=== PATIENT | male | born 1955 | race Caucasian/White ===

== ENCOUNTER 2022-02-24 15:13 | Emergency (ER) | payer SELFPAY ==
[2022-02-24 15:16] VITALS: BP 161/102; PULSE 84; RESP 13; TEMP 36.1; O2SAT 97; BMI 26.2
--- NOTE | 2022-02-24 15:20 | RAD_ITS ---
STUDY: X-RAY CHEST REASON FOR EXAM: Male, 66 years old. overdose, apnea, chest compressions TECHNIQUE: 1 view COMPARISON: None. FINDINGS: Cardiomediastinal silhouette is unremarkable. Costophrenic angles are sharp. Lungs are clear. The trachea is midline. There is no pneumothorax. Multilevel thoracic spondylosis is seen. RAD/Chest 1 View (Portable) IMPRESSION: No acute cardiopulmonary process. . Electronically Signed: Israel Byrnes MD at 16:21 EDT ,
--- NOTE | 2022-02-24 15:21 | EKG12_ITS ---
Test Reason : UNRESPONSIVE Blood Pressure : / mmHG Vent. Rate : 079 BPM Atrial Rate : 079 BPM P-R Int : 190 ms QRS Dur : 108 ms QT Int : 432 ms P-R-T Axes : 054 -05 018 degrees QTc Int : 495 ms Normal sinus rhythm Nonspecific ST abnormality Prolonged QT Abnormal ECG Confirmed by OSMAR ALFARO, ARVIN ([id number]), communications editor BETH MYERS ([id number]) on 02/27/2022 1:14:52 PM Referred By: FOREIGN Confirmed By:ARVIN PRASAD MD
--- NOTE | 2022-02-24 15:24 | EX.ED.DYSGE1 ---
HPI History of Present Illness Chief Complaint: Unresponsive Informant: patient and EMS Narrative Narrative: Patient is a 66-year-old male denies any past medical history presenting presenting after unresponsive/apneic episode. Patient was last seen at his house about 2 hours prior to arrival where he was normal. Neighbor who works for a local EMS checked on him and states that he was unresponsive, not breathing and he could not feel pulse. Chest compressions were started after 1 minute patient had reported ROSC. Patient continued to be in respiratory arrest and EMS arrived. And I gel was placed and patient initially had end-tidal CO2 in the 50s. Patient was given 2 mg intranasal Narcan and then 2 mg of IV Narcan. Fingerstick glucose was normal. En route patient suddenly had return of spontaneous respirations and was awake and alert. Igel was removed. Patient currently denies any complaints. He states he does not remember what happened. He does admit to both ingesting and snorting Percocet earlier today. He states he took it because he just was not feeling well. Denies any chest pain or difficulty breathing. Denies any other complaints at this time. PFSH PFSH Home Medications hydrocodone-acetaminophen 1 - 2 tab PO Q4H PRN PRN #12 tablet 09/25/15 [Rx Last Taken Unknown] amlodipine 5 mg PO DAILY 02/24/22 [History Last Taken Unknown] diphenhydramine HCl 25 mg PO DAILY 02/24/22 [History Last Taken Unknown] hydrochlorothiazide 25 mg PO DAILY 02/24/22 [History Last Taken Unknown] Allergy/AdvReac Type Severity Reaction Status Date / Time Penicillins AdvReac Other Verified 09/25/15 10:32 Social History Smoking Status: Unknown if ever smoked ROS [facility] ED Constitutional Constitutional ED: Reports other Details: Generalized malaise ; Denies chills or fever(s) ENT ENT ED: Denies rhinorrhea or sore throat Cardiovascular Cardiovascular: Denies chest pain Respiratory/Chest Respiratory/Chest: Denies cough or dyspnea Gastrointestinal Gastrointestinal: Denies abdominal pain, diarrhea or vomiting Musculoskeletal Musculoskeletal: Denies arthralgias or myalgias Integumentary Denies rash Neurologic Neurologic: Denies headache(s) or weakness Psychiatric Psychiatric: Denies anxiety, depression or suicidal thoughts EXAM Physical Exam Const Vital Signs: 02/24/22 15:16 02/24/22 16:29 02/24/22 17:00 Temperature 97.0 F L Temperature Source Oral Pulse Rate 84 73 61 Respiratory Rate 13 12 12 Blood Pressure 161/102 H 136/107 H 134/91 H Blood Pressure Mean 121 116 105 Pulse Ox 97 94 97 Oxygen Delivery Method Room Air Nasal Cannula Nasal Cannula Oxygen Flow Rate (L/min) 2 2 02/24/22 18:31 02/24/22 19:00 Temperature 97 F L Temperature Source Temporal Pulse Rate 62 70 Respiratory Rate 12 11 L Blood Pressure 135/97 H 133/98 H Blood Pressure Mean 109 109 Pulse Ox 94 92 Oxygen Delivery Method Room Air Room Air Oxygen Flow Rate (L/min) Positive well nourished and well developed General Appearance ED: well developed and NAD HEENT Reports moist mucous membranes Negative for trauma Eyes PERRL and EOMs intact bilaterally Neck supple and no JVD Chest Wall inspection of chest normal and palpation of chest normal Chest Narrative: No chest wall crepitus appreciated. Resp normal respiratory effort and clear to auscultation bilaterally Cardio regular rate, regular rhythm and no murmurs Rate: other Other Details: 2+ radial pulses bilaterally GI normal to inspection, nondistended, normoactive bowel sounds and non-tender Palpation: soft Back/Spine no CVA tenderness Extremity normal to inspection General Extremety ED: Negative for edema or tenderness General Extremity: Negative for edema Neuro oriented x3, CN's II-XII intact bilaterally and no sensory deficits noted Sensorium / Orientation: alert Motor Exam: strength 5/5 throughout; Negative for general weakness Psych mental status grossly normal Skin no rashes or lesions noted and no wounds MDM MDM MDM Narrative Medical decision making narrative: Patient evaluated after an episode of unresponsiveness, apnea and questionable loss of pulses. This occurred after he ingested half of a 7.5 Percocet and then snorted the other half. Patient received Narcan in route and then had return of spontaneous respirations and mentation. Patient currently has no complaints. Given the report of loss of pulses and chest compressions I did perform a cardiac work-up. His high since he troponin was 4 and then 9. EKG did not show any acute ischemic changes. I do not think this was an ACS event. CBC is normal as well as CMP except for mild hyperglycemia with a glucose of 157. His potassium is 2.9 however his magnesium is normal. Patient is given oral and IV potassium replacement. He is monitored in the ER for 3 hours and has no further apnea however he does have some transient hypoxia that he does seem to recover from. No signs of aspiration or pulmonary edema on physical exam or x-ray. Patient will be discharged home with instructions to follow-up with his primary care doctor. He is counseled to not abuse opioid medications especially snorting them. He is given return precautions. He verbalizes agreement understand this plan. He will have a feeling of her stay with him tonight. Lab Data Attestation: I reviewed the patient's lab results. Labs: Laboratory Results - last 24 hr 02/24/22 02/24/22 02/24/22 15:25 15:25 16:00 WBC 8.3 RBC 5.46 Hgb 16.3 Hct 50.8 MCV 93.0 MCH 29.9 MCHC 32.1 RDW Std Deviation 45.0 H RDW Coeff of Leo 13.2 Plt Count 306 MPV 8.1 Immature Gran % (Auto) 0.500 Neut % (Auto) 66.6 Lymph % (Auto) 20.7 Yates % (Auto) 6.4 Eos % (Auto) 5.0 Baso % (Auto) 0.8 Absolute Neuts (auto) 5.5 Absolute Lymphs (auto) 1.71 Nucleated RBC % 0 Sodium Cancelled 138 Potassium Cancelled 2.9 L Chloride Cancelled 105 Carbon Dioxide Cancelled 25.0 Anion Gap Cancelled 8 BUN Cancelled 9 Creatinine Cancelled 0.94 Estim Creat Clear Calc Cancelled 75.80 Est GFR (MDRD) Af Amer Cancelled 104 Est GFR (MDRD) Non-Af Cancelled 86 BUN/Creatinine Ratio Cancelled 9.6 L Glucose Cancelled 157 H Calcium Cancelled 8.6 Magnesium Total Bilirubin Cancelled 0.50 AST Cancelled 35 ALT Cancelled 41 Alkaline Phosphatase Cancelled 89 Troponin I High Sens Cancelled 4 Total Protein Cancelled 7.7 Albumin Cancelled 3.3 Globulin Cancelled 4.4 H Albumin/Globulin Ratio Cancelled 0.8 L 02/24/22 02/24/22 16:00 18:20 WBC RBC Hgb Hct MCV MCH MCHC RDW Std Deviation RDW Coeff of Leo Plt Count MPV Immature Gran % (Auto) Neut % (Auto) Lymph % (Auto) Yates % (Auto) Eos % (Auto) Baso % (Auto) Absolute Neuts (auto) Absolute Lymphs (auto) Nucleated RBC % Sodium Potassium Chloride Carbon Dioxide Anion Gap BUN Creatinine Estim Creat Clear Calc Est GFR (MDRD) Af Amer Est GFR (MDRD) Non-Af BUN/Creatinine Ratio Glucose Calcium Magnesium 2.1 Total Bilirubin AST ALT Alkaline Phosphatase Troponin I High Sens 9 Total Protein Albumin Globulin Albumin/Globulin Ratio Radiography Chest X-Ray - ED: 1 View, Read by ED Physician, Read by Radiologist and No Acute Disease Diagnostic Testing: Clinical Impression(s) from Imaging Studies Chest X-Ray 02/24/22 15:20 IMPRESSION: No acute cardiopulmonary process. . Electronically Signed: Israel Byrnes MD at 16:21 EDT , Rhythm Strip Rhythm Strip: Sinus Rhythm Rate: 79 Ectopy: None EKG Initial EKG: Attestation: I personally reviewed and interpreted this EKG as follows: Interpretation: Sinus Rhythm Comments: Normal sinus rhythm at a rate of 79 Normal axis Normal KS and QRS Prolonged QTC of [address] segments with T wave inversion in 3 and aVR which may be normal variant Discharge Plan Triage Chief Complaint: Unresponsive ED Provider: Alicia Ortiz Dx/Rx/DC Orders Clinical Impression: Opioid overdose, Hypokalemia Instructions: ED Opiate Abuse, ED Hypokalemia Prescriptions: No Action hydrocodone-acetaminophen 1 TABLET tablet 1 - 2 tab PO Q4H PRN PRN (Reason: Pain) Qty: 12 RF: 0 amlodipine 5 mg tablet 5 mg PO DAILY RF: 0 diphenhydramine HCl 25 mg Tablet 25 mg PO DAILY RF: 0 hydrochlorothiazide 25 mg tablet 25 mg PO DAILY RF: 0 Primary Care Provider: Brandin Woodward Referrals: Brandin Woodward MD [Primary Care Provider] - Disposition Disposition: Home, Self Care
--- NOTE | 2022-02-24 15:27 | NURSING ---
NO OLD EKGS
[2022-02-24 15:32] LABS: Absolute Lymphocyte Count 1.71 X10^3/uL (0.83-4.51); Absolute Neutrophil Count 5.5 X10^3/uL (2.0-7.7); Basophil# 0.07 X10^3/uL; Basophil% 0.8 % (0-1); Eosinophil# 0.41 X10^3/uL; Hematocrit 50.8 % (40-54); Hemoglobin 16.3 g/dL (13.0-16.5); Lymphocyte # 1.71 X10^3/ul (0.83-4.51); Lymphocyte % 20.7 % (19-41); Mean Corp Hgb Conc 32.1 g/dL (32-36); Mean Corpuscular Hgb 29.9 pg (27.0-32.0); Mean Platelet Vol. 8.1 fl (6.2-12.0); Monocyte# 0.53 X10^3/uL; Monocyte% 6.4 % (0-10); NRBC Flagged by Analyzer 0 % (0-5); Neutrophil # 5.49 X10^3/uL (2.7-7.7); Neutrophil % 66.6 % (47-70); Platelet Count 306 K/mm3 (150-450); RBC Distribution Width CV 13.2 % (11.6-14.6); Red Blood Count 5.46 M/mm3 (4.6-6.2); White Blood Count 8.3 K/mm3 (4.4-11.0)
--- NOTE | 2022-02-24 15:34 | ED.RN ---
PT ADMITS TO SNORTING PERCOCET. STATES NOT THE FIRST TIME. PT GIVES STAFF PERMISSION TO TALK WITH FAMILY REGARDING WHAT BROUGHT PT IN.
--- NOTE | 2022-02-24 15:55 | NURSING ---
CMP AND TROP HEMOLIZED, PER LAB
[2022-02-24 16:29] VITALS: BP 136/107; PULSE 73; RESP 12; O2SAT 94
[2022-02-24 16:35] LABS: ALB/GLOB Ratio 0.8 RATIO (0.9-2.4); AST(SGOT) 35 U/L (15-37); Alanine Aminotransfer ALT/SGPT 41 U/L (16-61); Albumin, Serum 3.3 g/dL (3.2-5.0); Alkaline Phosphatase 89 U/L (45-117); Anion Gap 8 (5-15); BUN 9 mg/dL (7-18); BUN/Creat Ratio 9.6 RATIO (10-20); Calcium,Total 8.6 mg/dL (8.5-10.1); Chloride 105 mmol/L (98-107); Creatinine, Serum 0.94 mg/dL (0.70-1.30); EST Glomerular Filtration Rate 86 mL/min (>60); Est Glom Filt Rate - Afr Amer 104 mL/min (>60); Globulin 4.4 g/dL (2.2-4.2); Glucose 157 mg/dL (74-106); Potassium 2.9 mmol/L (3.5-5.1); Protein, Total 7.7 g/dL (6.4-8.2); Sodium Level 138 mmol/L (136-145); Troponin-I HS (w/2H Reflex) 4 pg/mL (3.0-78.0)
--- NOTE | 2022-02-24 16:39 | CM.ED ---
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 Present in the room was patient's son, Charles. Patient stated he was in pain as I had overdone it and decided to take the Percocet. Patient denied any intent to harm himself or others. Patient stated I decided to tell the truth about the percocet use. Patient was asked about information on detox and/or AOD services or counseling and patient declined. SW offered information on financial programs including medicaid and PCP. Patient said I go to my doctor one time a year and declined the medicaid application as it will cause brain stress. SW again offered detox information and patient declined. SW spoke to patient's son and asked if he had any concern and patient's son said that he was gonna talk to dad about this later. Patient denied that he had overdosed. MP updated MD. SW remains available if needs arise. Plan: Resources offered but declined. Emelia GARCIA
[2022-02-24] MEDS: Potassium Chloride Oral Tablet 20 MEQ 40 MEQ PO (16:54)
[2022-02-24] MEDS: Potassium Chloride 10mEq/100mL 10 MEQ/100 ML IV.SOLN. 100 MEQ IV BOLUS (16:54)
[2022-02-24 17:00] VITALS: BP 134/91; PULSE 61; RESP 12; O2SAT 97
[2022-02-24 17:19] LABS: Magnesium 2.1 mg/dL (1.6-2.6)
[2022-02-24 18:06] LABS: Reflex Troponin-HS? (from REC) Y
[2022-02-24 18:31] VITALS: BP 135/97; PULSE 62; RESP 12; TEMP 36.1; O2SAT 94
[2022-02-24 18:51] LABS: Troponin-I HS 9 pg/mL (3.0-78.0)
[2022-02-24 19:00] VITALS: BP 133/98; PULSE 70; RESP 11; O2SAT 92
[2022-02-24 20:30] VITALS: BP 132/78; PULSE 78; RESP 16; O2SAT 95
== END 2022-02-24 20:32 | disposition home or self-care (01) ==
PROVIDERS: Emergency Provider Emergency Medicine; PCP Family Medicine; Visit Provider Emergency Medicine
DX: T40.2X1A Poisoning by other opioids, accidental (unintentional), initial encounter (principal); R09.02 Hypoxemia; E87.6 Hypokalemia
CPT/HCPCS: 71045; 80053; 83735; 84484; 85025; 93005; 96365; 96366; 99285; A4216

== ENCOUNTER 2023-02-05 16:47 | Emergency (ER) | payer SELFPAY ==
[2023-02-05] VITALS (18 sets, daily range): BP systolic 68–136; BP diastolic 55–119; PULSE 82–132; RESP 16–30; TEMP 35.4; O2SAT 88–98; BMI 26.8
--- NOTE | 2023-02-05 18:19 | CT_ITS ---
INDICATION: dissection study EXAMINATION: CTA CHEST, ABDOMEN AND PELVIS WITH CONTRAST - TECHNIQUE: A CTA of the chest, abdomen, and pelvis is obtained with sagittal and coronal reconstructed MIP views. Three-dimensional surface rendered sequence of the thoracic and abdominal aorta was obtained. A radiation dose optimization technique was used for this scan. mL of Isovue-370. Oral contrast: None. RADIATION DOSAGE (If Supplied By Facility): CTDIvol = ( 13.84 ) mGy, DLP = ( 1007.23 ) mGycm COMPARISON: FINDINGS: CTA CHEST: THORACIC AORTA: Borderline ascending aorta measuring 4.1 cm in diameter. LUNGS: The lungs are well-expanded without acute or chronic changes. No effusions or pneumothorax. MEDIASTINUM: The thyroid gland is normal. Mild mediastinal adenopathy. HEART: Heart is normal size. No pericardial effusion. CT ABDOMEN AND PELVIS: LIVER: The liver enhances homogeneously. No masses identified. GALLBLADDER: The CBD is normal. Normal gallbladder. SPLEEN: Normal. PANCREAS: Limited visualization due to large retroperitoneal hematoma. ADRENAL GLANDS: Normal. KIDNEYS AND URETERS: The kidneys both enhance appropriately. There are normal size and shape. No hydronephrosis or nephrolithiasis. No renal masses or cysts. STOMACH: Normal. SMALL BOWEL: No abnormal distention of the small bowel. ABDOMINAL AORTA: There is a large abdominal aortic aneurysm beginning at the level of the renal arteries extending to the aortic bifurcation maximum diameter is approximately 8.5 cm with intraluminal thrombus. Active bleeding is not appreciated at the time of imaging. 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 Calcified iliac arteries bilaterally. COLON: No significant diverticulosis, masses or inflammation. The colon otherwise is normal. There is a large fatty ileocecal valve. APPENDIX: The appendix is visualized and normal. IVC: Normal. RETROPERITONEUM: There is a large left perinephric and retroperitoneal hematoma encasing the left kidney. PELVIC STRUCTURES: Normal bladder. BONES: No fractures or significant degenerative disease. CT/CTA Chst, Abd, Pel W and/or WO IMPRESSION: Borderline ascending aorta. Large infrarenal abdominal aortic aneurysm with large retroperitoneal and left perinephric hematoma. . 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 N.B. : The above Results were Read Back by Darwin Donnelly DO to Chris Garner MD, and understanding confirmed on 02/05/2023 19:07:33 (ET). Electronically Signed: Darwin Donnelly DO at 19:10 EDT ,
--- NOTE | 2023-02-05 18:20 | EKG12_ITS ---
Test Reason : BACK Blood Pressure : / mmHG Vent. Rate : 097 BPM Atrial Rate : 097 BPM P-R Int : 158 ms QRS Dur : 082 ms QT Int : 374 ms P-R-T Axes : 073 037 060 degrees QTc Int : 474 ms Normal sinus rhythm Normal ECG Confirmed by JOHNATHAN ALFARO, JAYDA ([id number]), research editor GEETHA DENISE ([id number]) on 02/06/2023 12:57:33 P M Referred By: MARK Confirmed By:IRWIN MANN MD
--- NOTE | 2023-02-05 18:20 | ED.VIS.BACK ---
HPI History of Present Illness Chief Complaint: Back Narrative Narrative: 67-year-old male presenting for some lower abdominal and right flank pain. He states this started abruptly while he was working today. He appears to be in a lot of pain and is unable to answer a lot of questions. He cannot describe exactly what the pain feels like. He states that it is 10 of 10. He is holding his abdomen. He denies urinary complaints, constipation, diarrhea. No history of kidney stones. PFSH PFSH Medical History no medical history Home Medications hydrocodone-acetaminophen 5-325mg 5mg-325mg 1 - 2 tab PO Q4H PRN PRN Pain ##12 09/25/15 [Rx Last Taken Unknown] amlodipine 5 mg tablet 5 mg PO DAILY 02/24/22 [History Last Taken Unknown] diphenhydramine HCl 25 mg tablet 25 mg PO DAILY 02/24/22 [History Last Taken Unknown] hydrochlorothiazide 25 mg tablet 25 mg PO DAILY bp 02/24/22 [History Last Taken Unknown] Allergy/AdvReac Type Severity Reaction Status Date / Time Penicillins AdvReac Other Verified 02/05/23 18:25 Surgical History no surgical history Social History Smoking Status: Unknown if ever smoked ROS ROS ED Constitutional Constitutional ED: Denies chills or fever(s) Eyes Eyes: Denies change in vision or diplopia ENT ENT ED: Denies rhinorrhea or sore throat Cardiovascular Cardiovascular: Denies chest pain or palpitations Respiratory/Chest Respiratory/Chest: Denies dyspnea or dyspnea on exertion Gastrointestinal Gastrointestinal: Reports abdominal pain; Denies constipation or diarrhea Genitourinary Genitourinary ED: Denies dysuria or hematuria Musculoskeletal Musculoskeletal: Reports back pain Integumentary Denies abscess or Abrasions Neurologic Neurologic: Reports headache(s) Psychiatric Psychiatric: Reports anxiety and depression EXAM Physical Exam Const Vital Signs: 02/05/23 16:49 02/05/23 18:14 02/05/23 17:30 Temperature 95.7 F L Temperature Source Temporal Pulse Rate 103 H 89 82 Respiratory Rate 24 H 22 H 16 Blood Pressure 123/92 H 93/76 97/64 Blood Pressure Mean 102 81 75 Blood Pressure Source Monitor Blood Pressure Position Semi-Fowlers Blood Pressure Location Left Arm Pulse Ox 98 95 96 Oxygen Delivery Method Room Air Nasal Cannula Room Air Oxygen Flow Rate (L/min) 4 02/05/23 18:52 02/05/23 19:01 02/05/23 19:04 Temperature 95.8 F L Temperature Source Temporal Pulse Rate 96 97 97 Respiratory Rate 30 H 22 H 20 H Blood Pressure 109/74 68/55 L Blood Pressure Mean 85 59 Blood Pressure Source Blood Pressure Position Blood Pressure Location Pulse Ox 95 98 97 Oxygen Delivery Method Nasal Cannula Nasal Cannula Nasal Cannula Oxygen Flow Rate (L/min) 4 4 4 02/05/23 17:00 02/05/23 18:10 02/05/23 18:57 Temperature Temperature Source Pulse Rate 91 96 97 Respiratory Rate 20 H 28 H 21 H Blood Pressure 136/106 H 79/63 L 71/60 L Blood Pressure Mean 116 68 63 Blood Pressure Source Blood Pressure Position Blood Pressure Location Pulse Ox 96 88 98 Oxygen Delivery Method Room Air Room Air Nasal Cannula Oxygen Flow Rate (L/min) 4 02/05/23 19:13 02/05/23 16:49 02/05/23 17:16 Temperature Temperature Source Pulse Rate 101 H 101 H 98 Respiratory Rate 22 H 20 H 20 H Blood Pressure 112/94 H 123/92 H 125/101 H Blood Pressure Mean 100 102 109 Blood Pressure Source Blood Pressure Position Blood Pressure Location Pulse Ox 98 96 97 Oxygen Delivery Method Nasal Cannula Room Air Room Air Oxygen Flow Rate (L/min) 4 02/05/23 17:45 02/05/23 18:03 02/05/23 18:04 Temperature Temperature Source Pulse Rate 95 82 88 Respiratory Rate 24 H 22 H 26 H Blood Pressure 135/119 H 82/69 L 78/60 L Blood Pressure Mean 124 73 66 Blood Pressure Source Blood Pressure Position Blood Pressure Location Pulse Ox 97 92 94 Oxygen Delivery Method Room Air Room Air Room Air Oxygen Flow Rate (L/min) 02/05/23 18:08 02/05/23 18:31 02/05/23 18:42 Temperature Temperature Source Pulse Rate 91 132 H 99 Respiratory Rate 25 H 28 H 24 H Blood Pressure 76/56 L 98/84 H 73/55 L Blood Pressure Mean 62 88 61 Blood Pressure Source Blood Pressure Position Blood Pressure Location Pulse Ox 96 94 95 Oxygen Delivery Method Room Air Nasal Cannula Nasal Cannula Oxygen Flow Rate (L/min) 4 4 02/05/23 18:45 Temperature Temperature Source Pulse Rate 98 Respiratory Rate 24 H Blood Pressure 73/57 L Blood Pressure Mean 62 Blood Pressure Source Blood Pressure Position Blood Pressure Location Pulse Ox 95 Oxygen Delivery Method Nasal Cannula Oxygen Flow Rate (L/min) 4 Positive well nourished Constitutional Narrative: Holding his abdomen appears. Eyes PERRL and EOMs intact bilaterally Resp normal respiratory effort and clear to auscultation bilaterally Auscultation: Negative for rales, rhonchi or wheezes Cardio regular rhythm Rate: tachycardic GI GI Narrative: Diffuse tenderness to palpation. There is right lower quadrant pain which is most pronounced. He is also had CVA tenderness on the right. Palpation: tender; Negative for pulsatile mass Back/Spine normal to inspection General Back: CVA tenderness right Extremity normal to inspection Neuro oriented x3 Sensorium / Orientation: alert and confused Psych Attitude: agitated Skin no rashes or lesions noted and no wounds MDM MDM MDM Narrative Medical decision making narrative: Patient presenting with vague lower abdominal pain and flank pain. Initially had stable vital signs. I was called to the room as the patient had dropped his blood pressure to 95/64. Initially normotensive. Patient is having difficulty give me a history at this point and is having abdominal pain which he cannot describe. He seems to be in severe pain. His abdomen is diffusely tender. He also has CVA tenderness. Given his hypotension I had concern for aortic aneurysm versus dissection. Although kidney stone would be in the differential or acute appendicitis I did believe the presentation was most consistent with a dissection or aortic aneurysm. Patient taken immediately to CTA of the chest abdomen pelvis where it was noted that he had a large aortic aneurysm with a retroperitoneal hematoma on my interpretation. I immediately called [facility] and discussed the case with the transfer line. They did state that they did not have any ICU beds but they did have vascular surgery and would get them on the line. This took about 10 minutes. I spoke with Dr. Randy Broderick and went over the CT read. She specifically asked me if I thought it involve the SMA and I told her I did not think so but the CTA had been interpreted yet. It looks like it starts at the level of the renal arteries down to the iliacs. There is definitely blood outside the aorta. I expressed to her that he is now hypotensive and I had ordered 4 units of trauma blood and has been given 2 L of fluids. [facility] has already been called and is on standby waiting for an accepting physician. In the interim while waiting for Dr. Foley to call back I did call [facility] to see if they would have an accepting physician given that the [facility] transfer line stated that there was no ICU beds. They declined the transfer because they had somebody on the table in the OR and currently. I spoke with a Dr. Jin at [facility] from the ED and discussed with him at length the patient that Dr. Padilla had accepted and the state of his health with a hypotensive and the abdominal aortic aneurysm and rupture. He excepted the patient in transfer. [facility] is now here and they were informed of all findings. He is given an additional 2 units of trauma blood to keep his pressure up. He is leaving with a blood pressure of 112/94. He is tachycardic at 101 and his respiratory rate 22. Discussed at length with his family what was happening and the urgency of surgery and a vascular surgeon. All consents were signed. Reevaluation in the patient's abdomen is becoming more firm and distended. Patient is transferred to [facility] in guarded condition via [facility]. Patient's blood work is really unremarkable. His CBC shows a white blood cell count 8.8, hemoglobin 14.7, platelets 8 orally. Renal function and electrolytes unremarkable. LFTs are unremarkable. Lipase is normal. High-sensitivity troponin is 7. EKG was sinus rhythm with a ventricular 97 bpm without sign of ischemic change or ectopy. Impression: 1. Ruptured abdominal aortic aneurysm 2. Acute blood loss anemia 3. Hypotension Lab Data Labs: Laboratory Results - last 24 hr 02/05/23 02/05/23 02/05/23 18:15 18:15 18:55 WBC 8.8 RBC 5.03 Hgb 14.7 Hct 44.9 MCV 89.3 MCH 29.2 MCHC 32.7 RDW Std Deviation 42.5 RDW Coeff of Leo 13.1 Plt Count 408 MPV 8.8 Immature Gran % (Auto) 0.300 Neut % (Auto) 73.9 H Lymph % (Auto) 17.1 L [place] % (Auto) 5.7 Eos % (Auto) 2.1 Baso % (Auto) 0.9 Absolute Neuts (auto) 6.5 Absolute Lymphs (auto) 1.51 Nucleated RBC % 0 Sodium 140 Potassium 3.2 L Chloride 105 Carbon Dioxide 25.0 Anion Gap 10 BUN 13 Creatinine 1.11 Estim Creat Clear Calc 63.33 Est GFR (MDRD) Af Amer 85 Est GFR (MDRD) Non-Af 70 BUN/Creatinine Ratio 11.7 Glucose 123 H Calcium 10.0 Total Bilirubin 0.30 AST 24 ALT 28 Alkaline Phosphatase 89 Troponin I High Sens 7 Total Protein 7.7 Albumin 3.5 Globulin 4.2 Albumin/Globulin Ratio 0.8 L Lipase 26 Blood Type O POSITIVE Antibody Screen NEGATIVE Crossmatch See Detail Radiography Diagnostic Testing: Clinical Impression(s) from Imaging Studies Chest/Abdomen/Pelvis CTA 02/05/23 18:19 IMPRESSION: Borderline ascending aorta. Large infrarenal abdominal aortic aneurysm with large retroperitoneal and left perinephric hematoma. . 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 N.B. : The above Results were Read Back by Darwin Donnelly DO to Chris Garner MD, and understanding confirmed on 02/05/2023 19:07:33 (ET). Electronically Signed: Darwin Donnelly DO at 19:10 EDT Reading Location ID and State: [facility] / [place] Tel [phone], Service support , ADDENDUM: 02/05/23 191 IMPRESSION: Borderline ascending aorta. Large infrarenal abdominal aortic aneurysm with large retroperitoneal and left perinephric hematoma. . 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 N.B. : The above Results were Read Back by Darwin Donnelly DO to Chris Garner MD, and understanding confirmed on 02/05/2023 19:07:33 (ET). Electronically Signed: Darwin Donnelly DO at 19:10 EDT , Critical Care Time Critical Care Time: Yes Critical care time (excluding procedures): 30-74 minutes (45), Discussing w/Patient &/or Family/Fly Setter, Discussing w/Consultants, Arranging Admission or Transfer and Performing Direct Patient Care at Bedside Discharge Plan Triage Chief Complaint: Back Other Complaint: Abd Pain ETOH Intox ED Provider: Chris Garner Dx/Rx/DC Orders Prescriptions: No Action hydrocodone-acetaminophen 1 TABLET tablet 1 - 2 tab PO Q4H PRN PRN (Reason: Pain) Qty: 12 0RF amlodipine 5 mg tablet 5 mg PO DAILY Label Comments: Take 1 tablet by mouth once daily. diphenhydramine HCl 25 mg Tablet 25 mg PO DAILY hydrochlorothiazide 25 mg tablet 25 mg PO DAILY Label Comments: Take 1 tablet by mouth once daily. Primary Care Provider: Brandin Woodward Referrals: Brandin Woodward MD [Primary Care Provider] - Disposition Disposition: Acute Care Hospital Discharge Location: [facility] Discharge Date/Time: 02/05/23 19:25
[2023-02-05 18:34] LABS: Absolute Lymphocyte Count 1.51 X10^3/uL (0.83-4.51); Absolute Neutrophil Count 6.5 X10^3/uL (2.0-7.7); Basophil# 0.08 X10^3/uL; Basophil% 0.9 % (0-1); Eosinophil# 0.19 X10^3/uL; Eosinophils% 2.1 % (0-5); Hematocrit 44.9 % (40-54); Hemoglobin 14.7 g/dL (13.0-16.5); Lymphocyte # 1.51 X10^3/ul (0.83-4.51); Lymphocyte % 17.1 % (19-41); Mean Corp Hgb Conc 32.7 g/dL (32-36); Mean Corpuscular Hgb 29.2 pg (27.0-32.0); Mean Corpuscular Volume 89.3 fL (80-94); Mean Platelet Vol. 8.8 fl (6.2-12.0); Monocyte% 5.7 % (0-10); NRBC Flagged by Analyzer 0 % (0-5); Neutrophil # 6.53 X10^3/uL (2.7-7.7); Neutrophil % 73.9 % (47-70); Platelet Count 408 K/mm3 (150-450); RBC Distribution Width CV 13.1 % (11.6-14.6); RBC Distribution Width SD 42.5 fl (35.1-43.9); Red Blood Count 5.03 M/mm3 (4.6-6.2); White Blood Count 8.8 K/mm3 (4.4-11.0)
[2023-02-05] MEDS: fentaNYL 100 MCG/2 ML Ampul 50 MCG IV (18:36)
[2023-02-05] MEDS: Ondansetron 4 MG/2 ML Vial IV ×2 (18:37→19:11)
[2023-02-05] MEDS: 0.9% Normal Saline 1,000 ML 1000 ML IV (18:39)
[2023-02-05] MEDS: fentaNYL 100 MCG/2 ML Ampul IV ×2 (18:50→19:13)
[2023-02-05 18:57] LABS: ALB/GLOB Ratio 0.8 RATIO (0.9-2.4); AST(SGOT) 24 U/L (15-37); Alanine Aminotransfer ALT/SGPT 28 U/L (16-61); Albumin, Serum 3.5 g/dL (3.2-5.0); Alkaline Phosphatase 89 U/L (45-117); Anion Gap 10 (5-15); BUN 13 mg/dL (7-18); BUN/Creat Ratio 11.7 RATIO (10-20); Chloride 105 mmol/L (98-107); Creatinine, Serum 1.11 mg/dL (0.70-1.30); EST Glomerular Filtration Rate 70 mL/min (>60); Est Glom Filt Rate - Afr Amer 85 mL/min (>60); Estimated Creatinine Clearance 63.33 ml/min; Globulin 4.2 g/dL (2.2-4.2); Glucose 123 mg/dL (74-106); Lipase 26 U/L (13-75); Potassium 3.2 mmol/L (3.5-5.1); Protein, Total 7.7 g/dL (6.4-8.2); Sodium Level 140 mmol/L (136-145); Troponin-I HS 7 pg/mL (3.0-78.0)
--- NOTE | 2023-02-05 19:27 | ED.RN ---
TRANSFER SHEET GOT TAKEN WITH [facility] WITHOUT COPY MADE.
--- NOTE | 2023-02-05 19:27 | NURSING ---
02/05/23@ 1845- TRAUMA BLOOD UNIT #1 [id number], UNIT #2 [id number], UNIT #3 [id number] STARTED AT 1845. UNIT #1 ENDED AT 1900, UNIT #2 ENDED AT 1903, UNIT #3 ENDED AT 1909. UNIT #4 [id number] STARTED AT 1903 AND ENDED AT 1917. UNIT #5 [id number] AND UNIT #6 [id number] STARTED AT 1917 AND CONTINUED TRANSFUSING DURING TRANSPORT. UNIT #6 DID NOT HAVE A STICKER TO PLACE ON PATIENTS CHART, LAB NOTIFIED. PTS TEMP PRIOR TO TRANSFUSION WAS 95.7 AND DURING TRANSFUSION WAS 95.8 WITH NO SIGNS OF TRANSFUSION REACTION, PT TOLERATED WELL.
--- NOTE | 2023-02-05 20:16 | ED.RN ---
175 THIS RN INFORMED OF PT RINGING CALL LIGHT 3X REQUESTING PAIN MEDICATION PER CRICKET RAMIREZ. 1809 THIS RN INFORMED BY JAMES HARLEY AND MEDIC VANNESA OF PT BEING HYPOTENSIVE, WITH C/O SEVERE ABDOMINAL PAIN. PT STATUS SAYS DOC SIGN UP PER DR. HOLDEN THIS RN AT BEDSIDE TO EVALUATE PT. PT PALE DIAPHORETIC, GROANING IN PAIN GUARDING ABDOMEN. DR. HOLDEN INFORMED BY JAMES HARLEY OF PT C/O AND HYPOTENSION. 1814 DR. HOLDEN AT BEDSIDE FOR INITIAL PT EVALUATION. 1816 PT TAKEN PT THIS RN TO CT. PT PLACED ON 2L NC FOR PULSE OX 92% ON ROOM AIR, 96% ON 2LNC. CT COMPLETE PT RETURNED TO ROOM BY THIS RN. PRIMARY RN AT BEDSIDE WITH PAIN MEDICATION. SEE
--- NOTE | 2023-02-05 20:22 | NURSING ---
02/05/23@2021- REPORT CALLED TO [facility] OR.
== END 2023-02-05 19:25 | disposition short-term general hospital (02) ==
PROVIDERS: Emergency Provider Student in an Organized Health Care Education/Training Program; PCP Family Medicine; Visit Provider Student in an Organized Health Care Education/Training Program
DX: I71.30 Abdominal aortic aneurysm, ruptured, unspecified (principal); I95.9 Hypotension, unspecified; D62 Acute posthemorrhagic anemia
CPT/HCPCS: 71275; 74174; 80053; 83690; 84484; 85025; 86850; 86900; 86901; 86920; 86922; 93005; 96361; 96374; 96375; 96376; 99283; J7030; P9016; Q9967; A4216; J2405